=== PATIENT | female | born 1955 | race Caucasian/White ===

== ENCOUNTER → 2021-03-14 | Outpatient (CLI) | payer OTHER | LOC: CT 14:03 | DX: C71.9 Malignant neoplasm of brain, unspecified (principal) | CPT/HCPCS: 71260; Q9967 ==

== ENCOUNTER → 2021-03-20 | Outpatient (CLI) | payer OTHER | LOC: MRI 10:18 | DX: C7A.8 Other malignant neuroendocrine tumors (principal); R90.89 Other abnormal findings on diagnostic imaging of central nervous system | CPT/HCPCS: 70553; A9577 ==